=== PATIENT | female | born 1960 | race Two or more races ===

== ENCOUNTER 2022-01-22 13:10 | Emergency (ER) | payer SELFPAY ==
[~2022-01-22] VITALS: Ht 157.5 cm; Wt 59.9 kg
--- NOTE | 2022-01-22 13:17 | NUR ---
TO Bob RBED 2. BIB FAMILY C/O DIZZINESS, VOMITING AND WEAKNESS x 22 DAYS, ALSO C/O ON&OFF CHEST PRESSURE. PT ATTCHED TO MONITOR. WARM BLNAKET PROVIDED FOR COMFORT. AWAITING MD SOTO.
[2022-01-22] MEDS ORDERED: MECLIZINE HCL 25 MG TABLET ONE (14:25)
[2022-01-22] MEDS ORDERED: MECLIZINE HCL 12.5 MG TABLET PO ONE (14:30)
[2022-01-22] MEDS ORDERED: IV NS 0.9% 1,000 ML BAG IV ONE (14:30)
[2022-01-22 14:43] LABS: BASOPHILS % (AUTO) 0.2 % (0.0-2.0); EOSINOPHILS % (AUTO) 0.3 % (0.0-6.0); HEMATOCRIT 40 % (33-45); HEMOGLOBIN 13.4 g/dL (11.5-14.8); LYMPHOCYTES # (AUTO) 1.5 K/uL (0.8-4.8); MEAN CORPUSCULAR HGB CONC 33 g/dl (31.0-36.0); MEAN CORPUSCULAR VOLUME 97 fL (82-100); MONOCYTES # (AUTO) 0.5 K/uL (0.1-1.30); MONOCYTES % (AUTO) 4.6 % (2.0-12.0); NEUTROPHILS % (AUTO) 79.9 % (43.0-81.0); PLATELET COUNT (AUTO) 214 K/uL (150-450); RED BLOOD CELL COUNT(AUTO) 4.18 MIL/uL (4.0-5.2)
--- NOTE | 2022-01-22 14:52 | NUR ---
PT TAKEN TO CT VIA JONATHAN
[2022-01-22 14:59] LABS: CALCIUM, SERUM 8.7 mg/dL (8.5-10.1); CARBON DIOXIDE 26 mmol/L (21-32); CHLORIDE 107 mmol/L (98-107); CREATININE 0.6 mg/dL (0.6-1.3); GLUCOSE 112 mg/dL (74-106); POTASSIUM 3.5 mmol/L (3.5-5.1); SODIUM SERUM 143 mmol/L (136-145); UREA NITROGEN, BLOOD 7 mg/dL (7-18)
[2022-01-22 15:05] LABS: ALANINE AMINOTRANSFERASE 20 U/L (12-78); ALBUMIN 3.6 g/dL (3.4-5.0); ALKALINE PHOSPHATASE 82 U/L (46-116); ASPARTATE AMINOTRANSFERASE 17 U/L (15-37); BILIRUBIN,DIRECT 0.1 mg/dL (0.0-0.2); BILIRUBIN,TOTAL 0.4 mg/dL (0.2-1.0); TOTAL PROTEIN, SERUM 6.9 g/dL (6.4-8.2)
[2022-01-22] MEDS ORDERED: MECL-159 PO (16:03)
--- NOTE | 2022-01-22 16:12 | NUR ---
IV removed. Catheter intact and site benign. Pressure and 4x4 applied to site. No bleeding noted.Patient discharged to home in stable condition. Written and verbal after care instructions given. Patient verbalizes understanding of instruction.
[2022-01-22 16:44] VITALS: BP 129/76
== END 2022-01-22 16:44 | disposition home or self-care (01) ==
LOC: ER 13:10
DX: R42 Dizziness and giddiness (principal); E78.00 Pure hypercholesterolemia, unspecified
CPT/HCPCS: 36415; 70450; 71045; 80048; 80076; 84484; 85025; 93005 ×2; 96360; 99285; J7030; J8597